=== PATIENT | male | born 1955 | race Caucasian/White ===

== ENCOUNTER 2020-06-11 14:21 | Inpatient (IN) | payer OTHER ==
[~2020-06-11] VITALS: Ht 172.7 cm; Wt 86.6 kg
[~2020-06-11 14:21] MED LIST: ATEN100T PO; HYDR-4001 PO
[2020-06-11] MEDS ORDERED: metformin (14:39)
[2020-06-11] MEDS ORDERED: ONDANSETRON HCL 4MG/2ML INJ IV STA ×2 (15:03→20:40)
[2020-06-11] MEDS ORDERED: MORPHINE SULFATE 4 MG/ML CPJ (NOT FOR IM USE) IV STA ×2 (15:03→20:40)
[2020-06-11] MEDS ORDERED: SODIUM CHLORIDE 0.9% 1,000 ML IV ONE (15:03)
[2020-06-11 15:32] LABS: BASOPHILS % 1.1 % (0.0-2.0); EOSINOPHILS % 1.8 % (0.0-5.0); HEMATOCRIT. 22.2 % (42.0-52.0); HEMOGLOBIN. 7.2 g/dL (14.0-18.0); LYMPHOCYTES % 30.5 % (20.0-50.0); MEAN CORPUSCULAR HEMOGLOBIN 25.7 pg (28.0-32.0); MEAN CORPUSCULAR VOLUME 79.3 fL (80.0-94.0); MONOCYTES % 13.3 % (2.0-8.0); NEUTROPHILS % 53.3 % (40.0-76.0); PLATELET 371 x1000/uL (130-400); RED CELL DISTRIBUTION WIDTH 17.7 % (11.6-14.6)
[2020-06-11 15:37] LABS: CHLORIDE 102 mEq/L (98-107)
[2020-06-11 15:39] LABS: INR 1.4; PROTHROMBIN TIME 14.5 sec (9.6-11.0)
[2020-06-11] MEDS ORDERED: ONDANSETRON HCL 4MG/2ML INJ IV ONE (16:15)
[2020-06-11] MEDS ORDERED: MORPHINE SULFATE 10 MG/ML CPJ IV ONE (16:15)
[2020-06-11 17:28] LABS: HEMATOCRIT 19.2 % (42.0-52.0); HEMOGLOBIN 6.2 g/dL (14.0-18.0)
[2020-06-11 18:35] LABS: CLARITY URINE CLEAR (CLEAR); COLOR URINE DARK YELLOW (YELLOW); KETONES URINE NEGATIVE (NEGATIVE); LEUKOCYTE ESTERASE URINE 1+ (NEGATIVE); NITRITE URINE NEGATIVE (NEGATIVE); OCCULT BLOOD URINE NEGATIVE (NEGATIVE); PROTEIN URINE NEGATIVE (NEGATIVE); SPECIFIC GRAVITY URINE 1.017 (1.005-1.030); UROBILINOGEN URINE >8.0 E.U./dL (0.2-1.0)
[2020-06-11 21:27] LABS: HEMATOCRIT 23.8 % (42.0-52.0); HEMOGLOBIN 7.4 g/dL (14.0-18.0)
[2020-06-11 22:00] VITALS: BP 115/57
[2020-06-11] MEDS ORDERED: MORPHINE SULFATE 4 MG/ML CPJ (NOT FOR IM USE) IV PRN (23:00)
[2020-06-11] MEDS ORDERED: LORAZEPAM 2MG/ML CPJ IM PRN (23:00)
[2020-06-11] MEDS ORDERED: DEXTROSE 50% WATER 50ML SYRINGE IV PRN (23:00)
[2020-06-12] VITALS (64 sets, daily range): BP systolic 60–121; BP diastolic 30–70
[2020-06-12] MEDS: BLOOD SUGAR DIAGNOSTIC STRIP TEST SCH ×3 (00:03→12:12)
[2020-06-12 00:46] LABS: BG BASE EXCESS -27.2 mmol/L (-2.0-2.0); BG CARBOXYHEMOGLOBIN 0.4 % (0.5-1.5); BG FRACTION INSPIRED OXYGEN 100; BG HCO3 ACT 4.1 mmol/L (22.0-26.0); BG METHEMOGLOBIN 0.5 % (0.0-1.5); BG OXYHEMOGLOBIN 97.1 % (94.0-97.0); BG PH 6.871 (7.350-7.450); BG PO2 160.2 mmHg (75.0-100.0); BG SAMPLE SITE LEFT RADIAL; BG TOTAL HEMOGLOBIN 7.4 g/dL (12.0-18.0); BG VENT MODE MASK - NRB
[2020-06-12] MEDS ORDERED: DEXTROSE 5% WATER 1,000 ML IV SCH (01:30)
[2020-06-12] MEDS ORDERED: NOREPINEPHRINE 32 MG in DEXT 5% WATER 468 ML IV PRN (01:30)
[2020-06-12] MEDS ORDERED: SODIUM BICARBONATE 8.4% 1 MEQ/ML 50ML SYR IV NR ×5 (01:30→11:15)
[2020-06-12] MEDS ORDERED: SODIUM BICARBONATE 150 MEQ in DEXTROSE 5% WATER 1,000 ML IV SCH ×3 (01:45→10:00)
[2020-06-12] MEDS ORDERED: LEVOFLOXACIN 500MG PREMIX 100 ML IV SCH (03:00)
[2020-06-12] MEDS ORDERED: METRONIDAZOLE 500 MG PREMIX 100 ML IV SCH (04:00)
[2020-06-12 05:45] LABS: CHLORIDE 100 mEq/L (98-107)
[2020-06-12 05:47] LABS: HEMATOCRIT. 25.8 % (42.0-52.0); HEMOGLOBIN. 7.9 g/dL (14.0-18.0); MEAN CORPUSCULAR HEMOGLOBIN 26.9 pg (28.0-32.0); MEAN PLATELET VOLUME 8.3 fl (7.4-10.4); PLATELET 226 x1000/uL (130-400); RED BLOOD CELL COUNT 2.93 mill/uL (4.7-6.1); RED CELL DISTRIBUTION WIDTH 18.6 % (11.6-14.6)
[2020-06-12] MEDS ORDERED: OMEPRAZOLE 20MG CAPSULE EXTENDED RELEASE PO SCH (06:50)
[2020-06-12 08:02] LABS: BG BASE EXCESS -25.1 mmol/L (-2.0-2.0); BG CARBOXYHEMOGLOBIN 0.2 % (0.5-1.5); BG DEOXYHEMOGLOBIN 4.6 % (0.0-5.0); BG FRACTION INSPIRED OXYGEN 40; BG HCO3 ACT 5.3 mmol/L (22.0-26.0); BG METHEMOGLOBIN 0.3 % (0.0-1.5); BG OXYGEN SATURATION 95.4 % (92.0-98.5); BG OXYHEMOGLOBIN 94.9 % (94.0-97.0); BG PCO2 24.9 mmHg (35.0-45.0); BG PH 6.948 (7.350-7.450); BG PO2 100.2 mmHg (75.0-100.0); BG SAMPLE SITE RIGHT BRACHIAL; BG TOTAL HEMOGLOBIN 8.5 g/dL (12.0-18.0); BG VENT MODE NASAL CANNULA
[2020-06-12] MEDS: INSULIN LISPRO 100 UNITS/ML SUBCUT SCH ×2 (08:20→13:13)
[2020-06-12] MEDS ORDERED: DEXTROSE 50% WATER 50ML SYRINGE IV NR (08:49)
[2020-06-12] MEDS ORDERED: INSULIN REGULAR (HUMULIN R) 300UNITS/3ML IV NR (08:49)
[2020-06-12] MEDS ORDERED: SPIRONOLACTONE 50MG TABLET PO SCH (09:00)
[2020-06-12] MEDS ORDERED: FUROSEMIDE 40MG TABLET PO SCH (09:00)
[2020-06-12] MEDS ORDERED: VECURONIUM BROMIDE 10 MG/VIAL IV ONE (09:39)
[2020-06-12] MEDS ORDERED: ETOMIDATE 2MG/ML 10ML VIAL IV ONE (09:39)
[2020-06-12] MEDS ORDERED: LORAZEPAM 2MG/ML CPJ IV PRN (09:45)
[2020-06-12] MEDS ORDERED: MORPHINE SULFATE 2 MG/ML CPJ (NOT FOR IM USE) IV PRN (09:45)
[2020-06-12 09:56] LABS: PLATELET ESTIMATE NORMAL
[2020-06-12] MEDS ORDERED: LIDOCAINE HCL 1% 20ML VIAL (Pyxis) INJ ONE (10:31)
[2020-06-12 10:37] LABS: BG BASE EXCESS -21.9 mmol/L (-2.0-2.0); BG DEOXYHEMOGLOBIN 0.4 % (0.0-5.0); BG FRACTION INSPIRED OXYGEN 100; BG HCO3 ACT 7.6 mmol/L (22.0-26.0); BG METHEMOGLOBIN 0.8 % (0.0-1.5); BG OXYGEN SATURATION 99.6 % (92.0-98.5); BG OXYHEMOGLOBIN 98.8 % (94.0-97.0); BG PCO2 31.3 mmHg (35.0-45.0); BG PH 7.003 (7.350-7.450); BG PO2 329.5 mmHg (75.0-100.0); BG SAMPLE SITE RIGHT BRACHIAL; BG TIDAL VOLUME(mL) 500 mL; BG TOTAL HEMOGLOBIN 7.4 g/dL (12.0-18.0); BG VENT MODE VENT - A/C; BG VENT RATE 24 set
[2020-06-12] MEDS ORDERED: PANTOPRAZOLE SODIUM 40 MG/VIAL IV SCH (10:45)
[2020-06-12] MEDS ORDERED: ONDANSETRON HCL 4MG/2ML INJ IV PRN (10:45)
[2020-06-12] MEDS ORDERED: SODIUM POLYSTYRENE SULFONATE 15 G/60 ML BOT PO NR (11:00)
[2020-06-12] MEDS ORDERED: PHENYLEPHRINE 40 MG in DEXT 5% WATER 246 ML IV PRN (11:30)
[2020-06-12] MEDS ORDERED: IPRATROPIUM/ALBUTEROL 0.5-3(2.5)MG/3ML NEB HHN PRN (11:45)
[2020-06-12] MEDS ORDERED: IPRATROPIUM/ALBUTEROL 0.5-3(2.5)MG/3ML NEB HHN SCH (12:00)
[2020-06-12] MEDS ORDERED: MORPHINE SULFATE 250 MG in DEXT 5% WATER 225 ML IV PRN (12:45)
[2020-06-12] MEDS ORDERED: LACTULOSE 20G/30ML UDC PO SCH (14:00)
[2020-06-12] MEDS ORDERED: PHYTONADIONE 10MG/ML AMP SUBCUT NR (14:15)
[2020-06-12 16:06] LABS: CARCINO EMBRYONIC ANTIGEN 2.9 ng/ml
[2020-06-12 16:17] LABS: HEPATITIS B SURFACE ANTIGEN NEGATIVE
[2020-06-12 16:46] LABS: HEPATITIS A AB IGM NEGATIVE (NEGATIVE)
[2020-06-12] MEDS ORDERED: RIFAXIMIN 550 MG TABLET NG SCH (21:00)
[2020-06-13] MEDS ORDERED: PHYTONADIONE 10MG/ML AMP SUBCUT NR (07:00)
== END 2020-06-12 16:50 | disposition expired | DRG 720 ==
LOC: ER 14:21 → 3WST 19:14 → EDBEDREQSVC 19:24 → EDBEDREQTM 19:24 → EDBEDREQ 19:24 → ENRESERV 20:32 → 3WST 23:15 → CVICU 06-12 01:03
PROVIDERS: ADMIT Internal Medicine; ATTEND Internal Medicine
PROC: 30233N1 Transfusion of Nonautologous Red Blood Cells into Peripheral Vein, Percutaneous Approach (ICD-10-PCS; 2020-06-11)
PROC: 02HV33Z Insertion of Infusion Device into Superior Vena Cava, Percutaneous Approach (ICD-10-PCS; principal; 2020-06-12)
PROC: B548ZZA Ultrasonography of Superior Vena Cava, Guidance (ICD-10-PCS; 2020-06-12)
PROC: 0BH17EZ Insertion of Endotracheal Airway into Trachea, Via Natural or Artificial Opening (ICD-10-PCS; 2020-06-12)
PROC: 5A1935Z Respiratory Ventilation, Less than 24 Consecutive Hours (ICD-10-PCS; 2020-06-12)
DX: A41.9 Sepsis, unspecified organism (principal); C22.9 Malignant neoplasm of liver, not specified as primary or secondary; D64.9 Anemia, unspecified; D68.9 Coagulation defect, unspecified; E11.649 Type 2 diabetes mellitus with hypoglycemia without coma; E11.65 Type 2 diabetes mellitus with hyperglycemia; Z66 Do not resuscitate; E43 Unspecified severe protein-calorie malnutrition; E87.1 Hypo-osmolality and hyponatremia; E87.2 Acidosis; E87.5 Hyperkalemia; E87.6 Hypokalemia; I10 Essential (primary) hypertension; J96.00 Acute respiratory failure, unspecified whether with hypoxia or hypercapnia; K57.30 Diverticulosis of large intestine without perforation or abscess without bleeding; K72.90 Hepatic failure, unspecified without coma; K74.60 Unspecified cirrhosis of liver; N17.0 Acute kidney failure with tubular necrosis; R18.8 Other ascites; R65.21 Severe sepsis with septic shock; Z51.5 Encounter for palliative care; Z88.0 Allergy status to penicillin; Z79.84 Long term (current) use of oral hypoglycemic drugs; Z79.899 Other long term (current) drug therapy; Z68.29 Body mass index [BMI] 29.0-29.9, adult
CPT/HCPCS: 36415; 36600; 71045; 74176; 76937; 80053; 81003; 82105; 82140; 82375; 82378; 82805; 82962; 83036; 85014; 85018; 85025; 86301; 86705; 86709; 86803; 86850; 86900; 86920; 87340; 93005; 94002; 94640; 96374; 99291; C1725; C9113; J1815; J1956; J2270; J2405; J3490; J7030; J7070; P9016